=== PATIENT | female | born 1990 | race Caucasian/White ===

== ENCOUNTER 2017-04-25 22:28 | Emergency (ER) | payer BC ==
[~2017-04-25] VITALS: Ht 162.6 cm; Wt 61.0 kg
[~2017-04-25 22:28] MED LIST: DARV PO; YAZ
[2017-04-25 22:34] VITALS: BP 140/84; PULSE 107; RESP 20; TEMP 100.1; O2SAT 99
[2017-04-25] MEDS ORDERED: IBUPROFEN 600 MG TAB PO ONE (22:45)
--- NOTE | 2017-04-25 22:47 | PD ---
HPI Chief Complaint: Cold / Flu Symptoms Time Seen by Provider: 22:44 Travel History International Travel<30 days: No Contact w/Intl Traveler<30days: No Traveled to known affect area: No History of Present Illness HPI 26-year-old female presents the emergency department with 3 day history of upper respiratory and type infection including headache, body aches, fever, and now cough since yesterday. The cough is nonproductive. She has no nausea, vomiting, or diarrhea. Fevers have been running over 100 to the past 3 days. Patient does state fever improves with ibuprofen and Tylenol. Patient is concerned because the cough is now worsening. She has no sick contacts. She has no known drug allergies. [facility] Past Medical History LMP: 04/07/17 Social History Alcohol Use: No Tobacco Use: No Substance Use: No Allergies-Medications (Allergen,Severity, Reaction): Coded Allergies: No Known Allergies (Verified , 04/25/17) Reported Meds & Prescriptions Reported Meds & Active Scripts Active No Active Prescriptions or Reported Medications Review of Systems Except as stated in HPI: all other systems reviewed are Neg General / Constitutional: No: Fever Eyes: No: Visual changes HENT: Positive: Rhinitis, Rhinorrhea, Congestion, No: Headaches, Vertigo, Lightheadedness, Sore Throat, Nosebleed, Neck Stiffness, Neck Pain, Ear Discharge, Earache Cardiovascular: No: Chest Pain or Discomfort Respiratory: Positive: Cough, Sneezing, No: Shortness of Breath, Wheezing, Orthopnea, Hemoptysis, Night Sweats, Pleuritic Pain Gastrointestinal: No: Nausea, Vomiting, Diarrhea, Abdominal Pain Genitourinary: No: Dysuria Musculoskeletal: Positive: Myalgias, No: Arthralgias, Limited ROM, Pain Skin: No Rash Neurologic: No: Weakness Psychiatric: No: Depression Endocrine: No: Polydipsia Hematologic/Lymphatic: No: Easy Bruising Physical Exam Narrative GENERAL: Patient appears ill but not septic. SKIN: Warm and dry. Normal color. Normal turgor. HEAD: Atraumatic. Normocephalic. EYES: Pupils equal and round. No scleral icterus. No injection or drainage. ENT: No nasal bleeding or discharge. Mucous membranes pink and moist. TMs are clear bilaterally. Pharynx has mild erythema without significant swelling or tonsillitis. No obvious postnasal drip. No sinus tenderness to palpation or percussion. NECK: Trachea midline. Neck is supple and nontender without lymphadenopathy. CARDIOVASCULAR: Regular rate and rhythm. RESPIRATORY: No accessory muscle use. Clear to auscultation. Breath sounds equal bilaterally. GASTROINTESTINAL: Abdomen soft, non-tender, nondistended. Hepatic and splenic margins not palpable. MUSCULOSKELETAL: Extremities without clubbing, cyanosis, or edema. No obvious deformities. NEUROLOGICAL: Awake and alert. No obvious cranial nerve deficits. Motor grossly within normal limits. Five out of 5 muscle strength in the arms and legs. Normal speech. PSYCHIATRIC: Appropriate mood and affect; insight and judgment normal. Data Data Last Documented VS Vital Signs Date Time Temp Pulse Resp B/P Pulse Ox O2 Delivery O2 Flow Rate FiO2 04/25/17 22:45 16 99 Room Air 04/25/17 22:34 100.1 107 140/84 Orders Influenzae A/B Antigen (04/25/17 22:41) Ibuprofen (Motrin) (04/25/17 22:45) MDM Medical Decision Making Medical Screen Exam Complete: Yes Emergency Medical Condition: Yes Differential Diagnosis Febrile illness. Myalgias. Influenza. Viral illness. Narrative Course Patient is medically stable at time of exam. Patient is given 600 mg ibuprofen by mouth. Rapid influenza test is sent. Patient is positive for influenza A. Discussed Tamiflu but felt that after 72 hours would not be helpful. Patient is to rest, push fluids, chicken soup, Tylenol Motrin and TheraFlu as needed. Patient follow-up with her primary care physician as needed as discussed. Diagnosis Primary Impression: Influenza A Referrals: Primary Care Physician Patient Instructions: General Instructions, H1N1 Influenza (ED) Additional Instructions: Patient is given 600 mg ibuprofen by mouth. Rapid influenza test is sent. Patient is positive for influenza A. Discussed Tamiflu but felt that after 72 hours would not be helpful. Patient is to rest, push fluids, chicken soup, Tylenol Motrin and TheraFlu as needed. Patient follow-up with her primary care physician as needed as discussed. Med/Other Pt SpecificInfo: No Meds Exist/No RX given Scripts No Active Prescriptions or Reported Meds Disposition: DISCHARGE HOME Condition: Stable Naseem Baker Apr 25, 2017 22:47
[2017-04-25] MEDS ORDERED: IBUP-232 PO (23:37)
[2017-04-26 00:04] VITALS: BP 132/86; TEMP 99
== END 2017-04-26 00:06 | disposition home or self-care (01) ==
LOC: PHEFT 22:28
DX: J10.89 Influenza due to other identified influenza virus with other manifestations (principal)
CPT/HCPCS: 87804; 99283